=== PATIENT | male | born 1990 | race Caucasian/White ===

== ENCOUNTER 2023-01-25 16:19 | Emergency (ER) | payer SELFPAY ==
[~2023-01-25] VITALS: Ht 175.3 cm; Wt 86.0 kg
[2023-01-25 16:28] VITALS: TEMP 98.7; O2SAT 99
[2023-01-25 17:30] VITALS: BP 148/92; PULSE 88; RESP 18
[2023-01-25] MEDS ORDERED: IBUPROFEN 600MG TABLET PO ONE (17:30)
[2023-01-25] MEDS ORDERED: IBUP-2029 MT (18:40)
== END 2023-01-25 19:40 | disposition home or self-care (01) ==
LOC: ER 16:19
DX: S40.012A Contusion of left shoulder, initial encounter (principal); S09.90XA Unspecified injury of head, initial encounter; V49.49XA Driver injured in collision with other motor vehicles in traffic accident, initial encounter; Y93.89 Activity, other specified; Y92.89 Other specified places as the place of occurrence of the external cause; Y99.8 Other external cause status
CPT/HCPCS: 73030; 99284